=== PATIENT | female | born 1945 | race Caucasian/White ===

== ENCOUNTER 2021-05-18 07:38 | Day surgery (SDC) | payer MEDICARE ==
[~2021-05-18] VITALS: Ht 168.9 cm; Wt 76.4 kg
[2021-05-18 07:58] VITALS: BP 153/70
[2021-05-18] MEDS ORDERED: DILT-91 PO (08:18)
[2021-05-18] MEDS ORDERED: SIMV10TA98 PO (08:19)
[2021-05-18] MEDS ORDERED: DULO60CA45 PO (08:21)
[2021-05-18] MEDS ORDERED: HYDR-3973 PO (08:22)
[2021-05-18] MEDS ORDERED: PANT-47 PO (08:23)
[2021-05-18] MEDS ORDERED: ASPI-611 PO (08:24)
[2021-05-18] MEDS ORDERED: CALC600T62 PO (08:26)
[2021-05-18] MEDS ORDERED: FERR-119 PO (08:27)
[2021-05-18] MEDS ORDERED: CHOL10006 PO (08:29)
[2021-05-18] MEDS ORDERED: MIDAZolam 1 MG/ML 5ML VIAL ONE (08:45)
[2021-05-18] MEDS ORDERED: fentaNYL/PF 50MCG/1 ML 2ML syringe ONE (08:45)
[2021-05-18] MEDS ORDERED: LIDOcaine Viscous 15ml cup ONE (08:45)
[2021-05-18 09:32] VITALS: BP 114/60
[2021-05-18 09:42] VITALS: BP 131/51
[2021-05-18 09:52] VITALS: BP 112/55
[2021-05-18 10:02] VITALS: BP 118/62
== END 2021-05-18 10:15 | disposition home or self-care (01) ==
LOC: GI LAB 07:38
PROVIDERS: ATTEND Internal Medicine Gastroenterology
DX: R13.10 Dysphagia, unspecified (principal); K29.50 Unspecified chronic gastritis without bleeding; K21.00 Gastro-esophageal reflux disease with esophagitis, without bleeding; K31.7 Polyp of stomach and duodenum; K22.10 Ulcer of esophagus without bleeding; K44.9 Diaphragmatic hernia without obstruction or gangrene; K22.2 Esophageal obstruction; I10 Essential (primary) hypertension; Z91.09 Other allergy status, other than to drugs and biological substances; Z79.899 Other long term (current) drug therapy; Z79.82 Long term (current) use of aspirin
CPT/HCPCS: 43239; 43450; G0500; J2250; J3010; J7040; 99152; A4620